=== PATIENT | male | born 1990 | race Caucasian/White ===

== ENCOUNTER 2017-01-29 14:17 | Inpatient (IN) | payer BC, OTHER ==
[~2017-01-29] VITALS: Ht 167.6 cm; Wt 68.0 kg
[2017-01-29 20:16] LABS: *AMPHETAMINE, URINE NEGATIVE (NEGATIVE); *BARBITURATE, URINE POSITIVE (NEGATIVE); *CANNABINOID, URINE POSITIVE (NEGATIVE); *COCCAINE, URINE NEGATIVE (NEGATIVE); *OPIATE, URINE NEGATIVE (NEGATIVE); *PHENCYCLIDINE SCREEN,URINE NEGATIVE (NEGATIVE)
--- NOTE | 2017-01-29 20:30 | NUR ---
ADMISSION NOTE---- Admitting 26 y/o male to [facility], [place], [facility] for ALCOHOL/BENZO/CRYSTAL METH AND MARIJUANA Dependency. HT - 5 FEET,6 INCHES. WT - 150 POUNDS. Pt is A/O X 4.PT denies any allergies to food or medications.Pt has a PMH of Anxiety,Depression,Bipolar disorder,PTSD,Insomnia,Hypertension,High Cholesterol,HIV AND SEIZURE X 1 due to withdrawals when he was 20 years old.Skin is intact,warm and dry to touch.Pt has rashes on his upper back due to acne.Breathing is even and non labored,bowel sounds present x 4.Pt stated that he has a BM every other day;last one was day before yesterday.Pt c/o mild nausea,headache,generalized body ache.No c/o vomiting or diarrhea noted.CIWA on admission is 7.Pt does not have a PCP.Pt is homeless. Drug hx as follows:-- ALCOHOL - DRINKS ABOUT A LITRE OF BACCARDI DAILY.DRINKING SINCE AGE OF 18. LAST DRINK WAS 4 DAYS AGO 01-25-17 BENZOS - RX ATIVAN - 2 TO 8 MG PO DAILY.TAKING FOR PAST 2 MONTHS, LAST TAKEN 2 MG ON 01-21-17 CRYSTAL METH - 1 TO 2 GRAMS DAILY.USING SINCE AGE OF 20. LAST USED 2 GRAMS ON 01-25-17 MARIJUANA - 4 GRAMS DAILY.SMOKING SINCE AGE OF 18. LAST USED 2 GRAMS ON 01-28-17. Pt oriented to room and unit;care plan and safety checks initiated.MD notified.Education provided on smoking cessation,Hep C,Fall prevention,seizures and substance use.Pt on full code status and regular diet.Urine obtained and sent to lab. TREATMENT HX FOLLOWS-- 1) [facility] IN [place].DISCHARGED ON 01-26-17 DUE TO INSURANCE PROBLEMS.STAYED THERE FOR 4 DAYS. 2) [facility] IN IN IN YEAR 2014,WHERE HE STAYED FOR 30 DAYS AND WAS SOBER FOR 1 YEAR AFTER THAT. PT STATED THAT [facility] FOR SUICIDAL IDEATIONS/ATTEMPTS SINCE THE AGE OF 16 YEARS.LAST ONE WAS AT [facility] WHERE HE STAYED FOR 10 DAYS.HE HAS HX OF SUICIDE ATTEMPTS BY CUTTING HIS WRISTS AND OVERDOSING ON MEDICATIONS IN THE PAST.HE IS PRESENTLY VERY DEPRESSED BUT DENIES ANY SI/HI/AH/VH AT THIS TIME.WILL CONTINUE TO MONITOR FOR SAFETY AND FOLLOW CARE PLAN. Addendum: 01/30/17 at 0236 by CARMEN MARQUEZ RN ALL SAFETY MEASURES IN PLACE.BED IS LOCKED AND IN LOWEST POSITION.SIDE RAILS UP X 2,CALL LIGHT WITHIN REACH.
[2017-01-29 20:35] VITALS: BP 147/99
[2017-01-29] MEDS ORDERED: ONDANSETRON 4 MG/2 ML VIAL IM PRN (22:15)
[2017-01-29] MEDS ORDERED: LOPERAMIDE HCL 2 MG CAPSULE PO PRN ×2 (22:15)
[2017-01-29] MEDS ORDERED: MAG HYDROX/AL HYDROX/SIMETH 30 ML LIQUID UDC PO PRN (22:15)
[2017-01-29] MEDS ORDERED: diphenhydrAMINE 50 MG CAPSULE PO PRN (22:15)
[2017-01-29] MEDS ORDERED: MAGNESIUM HYDROXIDE 30 ML LIQUID UDC PO PRN (22:15)
[2017-01-29] MEDS ORDERED: DICYCLOMINE HCL 20 MG TABLET PO PRN (22:15)
[2017-01-29] MEDS ORDERED: ACETAMINOPHEN 325 MG TABLET PO PRN (22:15)
[2017-01-29] MEDS ORDERED: LORAZEPAM 2 MG/1 ML VIAL IM PRN (22:15)
[2017-01-29] MEDS ORDERED: THIAMINE HCL 200 MG/2 ML VIAL IM ONE (22:15)
[2017-01-29] MEDS ORDERED: MIRALAX 17 GM POWD.PACK PO PRN (22:15)
[2017-01-29] MEDS ORDERED: LORAZEPAM 1 MG TABLET PO PRN ×2 (22:15)
[2017-01-29] MEDS ORDERED: LORAZEPAM 1 MG TABLET PO ONE (22:15)
[2017-01-29] MEDS: IBUPROFEN 400 MG TABLET PO PRN (22:25)
[2017-01-29] MEDS: ONDANSETRON ODT 4 MG TAB.RAPDIS SL PRN (22:26)
[2017-01-29] MEDS ORDERED: THIAMINE HCL 200 MG/2 ML VIAL ONE (22:28)
[2017-01-29] MEDS ORDERED: IBUPROFEN 400 MG TABLET ONE (22:30)
[2017-01-29] MEDS ORDERED: ONDANSETRON ODT 4 MG TAB.RAPDIS ONE (22:30)
--- NOTE | 2017-01-29 22:30 | NUR ---
PRN MOTRIN AND ZOFRAN GIVEN ORDERED FOR C/O HEADACHE AND NAUSEA.NO C/O VOMITING NOTED.WILL MONITOR.
[2017-01-29 22:59] LABS: ETHANOL < 3 MG/DL (0-0)
[2017-01-29 23:03] LABS: BASOPHILS % (AUTO) 0.3 % (0.0-2.0); EOSINOPHILS % (AUTO) 0.4 % (0.0-7.0); HEMATOCRIT 40.7 % (36.7-47.1); HEMOGLOBIN 13.9 g/dL (12.5-16.3); MEAN CORPUSCULAR HEMOGLOBIN 31.6 uug (23.8-33.4); MEAN CORPUSCULAR HGB CONC 34 g/dL (32.5-36.3); MEAN CORPUSCULAR VOLUME 92.9 fL (73.0-96.2); MONOCYTES # (AUTO) 0.3 K/uL (2.0-10.0); MONOCYTES % (AUTO) 5.3 % (0.0-11.0); PLATELET COUNT (AUTO) 192 K/uL (152-348); RED BLOOD CELL COUNT(AUTO) 4.39 MIL/uL (4.06-5.63); RED CELL DISTRIBUTION WIDTH 14.2 % (12.1-16.2); WHITE BLOOD COUNT (AUTO) 6.3 K/uL (3.6-10.2)
[2017-01-29 23:04] LABS: ALANINE AMINOTRANSFERASE 35 U/L (16-63); ALBUMIN 4.7 g/dL (3.4-5.0); ALKALINE PHOSPHATASE 140 U/L (50-136); AMYLASE 56 U/L (25-115); ASPARTATE AMINOTRANSFERASE 21 U/L (15-37); BILIRUBIN,TOTAL 0.6 mg/dL (0.2-1.0); CALCIUM 9.2 mg/dL (8.5-10.1); CARBON DIOXIDE 25 mmol/L (21-32); CHLORIDE 103 mmol/L (98-107); GFR 92 mL/min (>60); GLUCOSE 95 mg/dL (74-106); LIPASE 168 U/L (73-393); SODIUM SERUM 139 mmol/L (136-145); TOTAL PROTEIN, SERUM 8.2 g/dL (6.4-8.2); UREA NITROGEN, BLOOD 5 mg/dL (7-18)
[2017-01-29 23:14] LABS: THYROID STIMULATING HORMONE 1.793 mIU/mL (0.358-3.740)
--- NOTE | 2017-01-29 23:30 | NUR ---
PRN F/U--- HEADACHE AND NAUSEA RELIEVED.
[2017-01-29 23:33] LABS: HIV-1 p24 ANTIGEN NON REACTIVE (NONREACTIVE); HIV-1/2 ANTIBODY REACTIVE (NONREACTIVE)
[2017-01-29] MEDS ORDERED: POTASSIUM CHLORIDE 20 MEQ TAB.PRT.SR PO ONE (23:45)
[2017-01-30 00:15] VITALS: BP 153/100
[2017-01-30] MEDS ORDERED: POTASSIUM CHLORIDE 20 MEQ TAB.PRT.SR ONE (00:26)
[2017-01-30] MEDS: CLONIDINE HCL 0.1 MG TABLET PO PRN ×3 (00:26→15:05)
[2017-01-30] MEDS ORDERED: diphenhydrAMINE 50 MG CAPSULE ONE (00:27)
[2017-01-30] MEDS ORDERED: CLONIDINE HCL 0.1 MG TABLET ONE (00:28)
--- NOTE | 2017-01-30 00:29 | NUR ---
PRN BENADRYL AND CLONIDINE GIVEN ORDERED FOR C/O INSOMNIA,ANXIETY AND CHILLS.B/P=147/100.WILL MONITOR.
[2017-01-30] MEDS ORDERED: ACET-73 PO (01:19)
--- NOTE | 2017-01-30 01:30 | NUR ---
PRN F/U-- PT SEEN RESTING IN BED WITH EYES CLOSED.NO S/S OF DISTRESS NOTED.
[2017-01-30] MEDS ORDERED: LAMO25TA PO (01:36)
[2017-01-30] MEDS ORDERED: NICO1PAT10 TP (01:36)
[2017-01-30] MEDS ORDERED: ONDA4TAB5 PO (01:36)
[2017-01-30] MEDS ORDERED: LORA10CA PO (01:36)
[2017-01-30] MEDS ORDERED: LAMO100T PO (01:36)
[2017-01-30] MEDS ORDERED: LOPE2CAP40 PO (01:36)
[2017-01-30] MEDS ORDERED: MAGN400T30 PO (01:36)
[2017-01-30] MEDS ORDERED: POLY17PO3 PO (01:36)
[2017-01-30] MEDS ORDERED: OLAN5TAB3 PO (01:36)
[2017-01-30] MEDS ORDERED: MULT-1185 PO (01:36)
[2017-01-30] MEDS ORDERED: THIA100T13 PO (01:36)
[2017-01-30] MEDS ORDERED: CALC-469 PO (01:36)
[2017-01-30] MEDS ORDERED: DOCU-25 PO (01:36)
[2017-01-30] MEDS ORDERED: PRAZ1CAP5 PO (01:36)
[2017-01-30] MEDS ORDERED: SIME80TA60 PO (01:36)
[2017-01-30] MEDS ORDERED: CYAN10009 PO (01:36)
[2017-01-30] MEDS ORDERED: ROSU10TA PO (01:36)
[2017-01-30] MEDS ORDERED: PHEN32.43 PO (01:36)
[2017-01-30] MEDS ORDERED: GABA-534 PO (01:36)
[2017-01-30] MEDS ORDERED: FOLI1TAB16 PO (01:36)
[2017-01-30] MEDS ORDERED: CLON0.1T PO (01:36)
[2017-01-30] MEDS ORDERED: FLUT16SP BNOSTRILS (01:36)
[2017-01-30 04:00] VITALS: BP 127/82
--- NOTE | 2017-01-30 06:47 | NUR ---
END OF SHIFT--- 26 y/o male admitted to [facility] for ALCOHOL/BENZO/CRYSTAL METH AND MARIJUANA Dependency.Pt is A/O X 4.PT denies any allergies to food or medications.Pt has a PMH of Anxiety,Depression,Bipolar disorder,PTSD,Insomnia,Hypertension,High Cholesterol,HIV AND SEIZURE X 1 due to withdrawals when he was 20 years old.Pt has history of suicide attempts in the past;denies any SI at this time.Skin is intact,warm and dry to touch.Pt has rashes on his upper back due to acne.Breathing is even and non labored,bowel sounds present x 4. Last CIWA = 2.PRN Clonidine, Zofran, Motrin and Benadryl were given last night.Pt slept 5 hrs;fluid intake was 500 mls,voided x 2 . Safety precautions in place. Will continue to monitor
[2017-01-30 08:00] VITALS: BP 115/71
--- NOTE | 2017-01-30 08:15 | NUR ---
START OF SHIFT: RECEIVED PT A/O X 4. HE PRESENTS WITH BLUNTED AFFECT AND DEPRESSED MOOD. HE DENIES S/I AND H/I. HE REPORTS NAUSEA ,HEARTBURN AND ANXIETY. CIWA 7.PRN MYLANTA,VISTARIL,CLONIDINE ,ZOFRAN AND CLONIDINE GIVEN. WILL MONITOR EFFECTIVENESS OF PRN MEDS. PSYCH MD TO ASSESS PT TODAY. PPD PLANTED TO [facility]. ENCOURAGED INCREASED FLUIDS AND REST. WILL CONTINUE TO MONITOR AND OFFER SUPPORT.
[2017-01-30] MEDS: THIAMINE HCL 100 MG TABLET PO SCH (08:23)
[2017-01-30] MEDS: ONDANSETRON ODT 4 MG TAB.RAPDIS SL PRN ×2 (08:23→22:02)
[2017-01-30] MEDS: GABAPENTIN 300 MG CAPSULE PO SCH ×3 (08:24→17:30)
[2017-01-30] MEDS: HYDROXYZINE PAMOATE 25 MG CAPSULE PO PRN (08:24)
[2017-01-30] MEDS: FOLIC ACID 1 MG TABLET PO SCH (08:24)
[2017-01-30] MEDS: MULTIVITAMINS,THERAPEUTIC TABLET PO SCH (08:26)
[2017-01-30] MEDS ORDERED: PATIENT MAY USE OWN MED- MD OK PO SCH (09:00)
[2017-01-30] MEDS ORDERED: PROPRANOLOL LA 80 MG CAP.SA.24H PO SCH (09:00)
[2017-01-30] MEDS ORDERED: TUBERCULIN,PURIF.PROT.DERIV. 5 TU/0.1 ML TEST ID ONE (09:00)
--- NOTE | 2017-01-30 09:00 | NUR ---
PRN MEDS WERE EFFECTIVE. PT STATES HE FEELS BETTER.
[2017-01-30] MEDS ORDERED: LAMOTRIGINE 25 MG TABLET PO SCH (11:45)
[2017-01-30] MEDS ORDERED: LAMOTRIGINE 100 MG TABLET PO SCH (11:45)
[2017-01-30 12:00] VITALS: BP 140/88
[2017-01-30] MEDS: LAMOTRIGINE 100 MG TABLET PO SCH (12:54)
--- NOTE | 2017-01-30 15:05 | NUR ---
PRN CLONIDINE GIVEN FOR REPORTED CHILLS AND ANXIETY. WILL MONITOR EFFECTIVENESS OF PRN.
--- NOTE | 2017-01-30 15:40 | NUR ---
PRN CLONIDINE EFFECTIVE. PT STATES HE FEELS BETTER.
[2017-01-30 16:00] VITALS: BP 115/71
[2017-01-30] MEDS ORDERED: GABAPENTIN 300 MG CAPSULE PO SCH (17:00)
--- NOTE | 2017-01-30 19:13 | NUR ---
END OF SHIFT: PT CONTINUES ON OBSERVATION. PSYCH MD ASSESSED PT AND RECONCILED MEDS. HE C/O CHILLS ,NAUSEA AND HEARTBURN THIS AM. MYLANTA ,ZOFRAN,VISTARIL AND CLONIDINE GIVEN PRN AND EFFECTIVE. HE REPORTED SOME ANXIETY AND CHILLS THIS AFTERNOON AND CLONIDINE PRN GIVEN AND EFFECTIVE.PPD PLANTED TO [facility]. WILL PASS SHIFT REPORT TO ONCOMING NIGHT NURSE.
--- NOTE | 2017-01-30 19:15 | NUR ---
START OF SHIFT NOTE: Patient is a 26 y/o male admitted on 01/29/17 for ETOH & Benzo dependence. Patient reported also using Meth & Marijuana. Patient has medical history of Depression, Anxiety, Bipolar disorder, Seizure history d/t withdrawal, PTSD, HTN, High cholesterol, HIV & Insomnia. Patient is on a a regular diet with no known food and drug allergies. Full Code status. Seizure and Fall precaution. Patient is on PRN medications available for symptoms of withdrawals. Last CIWA is 1. Pt was given PRN Clonidine x2 during day shift. Patient is alert & oriented x4. No shortness of breath noted. Respiration even & unlabored. Abdomen soft & non-distended. Bowel sounds active in all four quadrants. No nausea/vomiting noted. Patient noted with 8/10 body aches & anxiety. Bilateral hand tremors noted. No hallucinations. Patient denies SI/HI. Safety precautions are in place. Bed locked in lowest position. Both side rails up. Call light within pts reach. Will continue to monitor patient.
[2017-01-30 20:00] VITALS: BP 132/88
[2017-01-30] MEDS: IBUPROFEN 400 MG TABLET PO PRN (20:00)
--- NOTE | 2017-01-30 20:00 | NUR ---
PRN Motrin Patient complains of 8/10 body aches. PRN Motrin given as ordered. Will reassess in 1 hour for effectiveness of medication. Will continue to monitor.
[2017-01-30 20:53] LABS: *BILIRUBIN,URIN NEGATIVE (NEGATIVE); *BLOOD, URINE NEGATIVE (NEGATIVE); *CLARITY,URINE SLIGHTLY CLOUDY (CLEAR); *COLOR,URINE YELLOW (YELLOW); *KETONES,URINE NEGATIVE (NEGATIVE); *PROTEIN,URINE NEGATIVE (NEGATIVE); LEUKOCYTE ESTERASE ,URINE NEGATIVE (NEGATIVE); NITRITE, URINE NEGATIVE (NEGATIVE); PH,URINE 6.5 (5.0-8.0); UGLUCOSE NEGATIVE (NEGATIVE)
--- NOTE | 2017-01-30 21:00 | NUR ---
PRN Reassessment Patient verbalized slight relief from body aches. Patient noted with 3/10 body aches at this time. Per pt, pain is tolerable. Will continue to monitor patient.
[2017-01-30 21:35] LABS: BACTERIA,URINE NONE SEEN /HPF (NONE SEEN); MUCUS,URINE MODERATE /LPF (0-FEW); RBC,URINE NONE SEEN /HPF (0-3); SQUAMOUS EPITHELIAL CELL,UR MODERATE /HPF (NONE SEEN)
[2017-01-30] MEDS: TRAZODONE 100 MG TABLET PO SCH (21:50)
[2017-01-30] MEDS: OLANZAPINE 5 MG TABLET PO SCH (21:50)
[2017-01-30] MEDS: PROPRANOLOL HCL 40 MG TABLET PO SCH (21:50)
[2017-01-30] MEDS: PRAZOSIN HCL 1 MG CAPSULE PO SCH (21:50)
[2017-01-30] MEDS: PATIENT MAY USE OWN MED- MD OK PO SCH (21:51)
--- NOTE | 2017-01-30 22:02 | NUR ---
PRN Ativan & Zofran Patient complains of nausea and noted with anxiety, agitation & mild headache. Slight bilateral hand tremors noted. CIWA of 7 noted. PRN Ativan given as ordered. Will reassess in 1 hour for effectiveness of medication. Will continue to monitor.
--- NOTE | 2017-01-30 23:02 | NUR ---
PRN Reassessment Patient verbalized effectiveness of medication. Improved nausea and decreased in anxiety noted. Pt lying in bed and appears comfortable. Vitals WNL. CIWA 2 noted at this time. Will continue to monitor.
[2017-01-31] VITALS (7 sets, daily range): BP systolic 111–145; BP diastolic 61–99
[2017-01-31] MEDS: IBUPROFEN 400 MG TABLET PO PRN (02:15)
[2017-01-31] MEDS: CLONIDINE HCL 0.1 MG TABLET PO PRN ×3 (02:15→18:56)
--- NOTE | 2017-01-31 02:15 | NUR ---
PRN Clonidine & Motrin Patient complains of anxiety, sweating, chills and mild headache. Vitals WNL. PRN Clonidine & Motrin given as ordered. Will continue to monitor patient.
--- NOTE | 2017-01-31 03:15 | NUR ---
PRN Reassessment Patient asleep in bed at this time and appears comfortable. No shortness of breath noted. Respiration even & unlabored. Safety precautions are in place. Will continue to monitor patient.
[2017-01-31 04:06] LABS: *BASOS 0 % (.); *EOS 0 % (.); *HCT 41.9 % (37.5-51.0); *HGB 13.6 g/dL (12.6-17.7); *IMMATURE GRANULOCYTES 0 % (.); *LYMPHOCYTES 35 % (.); *LYMPHOCYTES ABSOLUTE 2.3 x10E3/uL (0.7-3.1); *MCHC 32.5 g/dL (31.5-35.7); *MCV 95 fL (79-97); *MONOCYTES 5 % (.); *MONOCYTES ABSOLUTE 0.3 x10E3/uL (0.1-0.9); *NEUTROPHILS 60 % (.); *PLT 211 x10E3/uL (150-379); *RBC 4.39 x10E6/uL (4.14-5.80); *RDW 14.7 % (12.3-15.4); *WBC 6.6 x10E3/uL (3.4-10.8)
[2017-01-31 05:06] LABS: HCV AB <0.1 s/co ratio (0.0-0.9); HEPATITIS B CORE AB, IgM Negative (Negative); HEPATITIS B SURFACE AG Negative (Negative)
--- NOTE | 2017-01-31 07:05 | NUR ---
END OF SHIFT NOTE: Pt had and uneventful night. Pt remained stable and vitals remains WNL. Pt was given PRN Motrin x2, Clonidine, Ativan & Zofran were given and were effective. Pt reported that medication is effective in controlling withdrawal symptoms. Last CIWA 2 noted. Urine collected as ordered. Pt slept for a total of 6 hours. Pt still asleep at this time. No s/s of distress noted. No shortness of breath noted. Respiration even & unlabored. Pt consumed 796ml of fluids. Voided 1x with no bowel movement. All needs attended & met. Safety precautions are in place. Bed locked in lowest position. Both side rails up. Call light within pts reach. Will endorse pt to day shift nurse.
--- NOTE | 2017-01-31 07:38 | NUR ---
START OF SHIFT NOTE: Received report from warehouse supervisor 3rd shift nurse. Patient is a 26 y/o male admitted on 01/29/17 for ETOH & Benzo dependence. Pt is currently on prn medication only. Pt is alert and oriented X4, Color good, skin warm and dry. Respirations even and unlabored. Pt resting in room at this time. Safety precautions observed. Call light within reach. Will continue to monitor.
[2017-01-31] MEDS: GABAPENTIN 300 MG CAPSULE PO SCH ×3 (08:32→16:54)
[2017-01-31] MEDS: MULTIVITAMINS,THERAPEUTIC TABLET PO SCH (08:32)
[2017-01-31] MEDS: PROPRANOLOL HCL 40 MG TABLET PO SCH ×2 (08:32→20:13)
[2017-01-31] MEDS: ESCITALOPRAM OXALATE 10 MG TABLET PO SCH (08:33)
[2017-01-31] MEDS: FOLIC ACID 1 MG TABLET PO SCH (08:33)
[2017-01-31] MEDS: FLUTICASONE PROP NASAL SPRAY 16 GM BOTTLE NS SCH (08:33)
[2017-01-31] MEDS: LAMOTRIGINE 100 MG TABLET PO SCH (08:33)
[2017-01-31] MEDS: THIAMINE HCL 100 MG TABLET PO SCH (08:33)
[2017-01-31] MEDS ORDERED: NICOTINE 14 MG/24HR PATCH TD SCH (09:00)
[2017-01-31 09:06] LABS: ALBUMIN 4.8 g/dL (3.4-5.0); BILIRUBIN,DIRECT 0.1 mg/dL (0.0-0.2); BILIRUBIN,TOTAL 0.6 mg/dL (0.2-1.0); CALCIUM 9.1 mg/dL (8.5-10.1); CREATININE 1.1 mg/dL (0.6-1.3); MAGNESIUM 2.2 mg/dL (1.8-2.4); POTASSIUM 4.3 mmol/L (3.5-5.1); TOTAL PROTEIN, SERUM 8.3 g/dL (6.4-8.2)
--- NOTE | 2017-01-31 09:56 | NUR ---
VSS CIWA 9 Pt c/o tremors, sweating and anxiety.
--- NOTE | 2017-01-31 11:37 | NUR ---
Pt c/o anxiety Clonidine 0.1mg po prn given.
--- NOTE | 2017-01-31 12:45 | NUR ---
VSS Pt states anxiety has lessened after Clonidine prn
[2017-01-31] MEDS ORDERED: PANTOPRAZOLE SODIUM 40 MG TABLET.DR PO ONE (14:00)
[2017-01-31 14:10] LABS: *HELPER T-LYMPH MARKR(CD4)ABSO 849 /uL (359-1519); *HELPER T-LYNPH MARKER CD4)% 36.9 % (30.8-58.5)
[2017-01-31] MEDS: ONDANSETRON ODT 4 MG TAB.RAPDIS SL PRN (16:54)
--- NOTE | 2017-01-31 16:56 | NUR ---
Pt c/o nausea. Zofran 4mg SL prn given
[2017-01-31 17:25] LABS: *AMPHETAMINE, URINE NEGATIVE (NEGATIVE); *BARBITURATE, URINE POSITIVE (NEGATIVE); *CANNABINOID, URINE POSITIVE (NEGATIVE); *COCCAINE, URINE NEGATIVE (NEGATIVE); *OPIATE, URINE NEGATIVE (NEGATIVE); *PHENCYCLIDINE SCREEN,URINE NEGATIVE (NEGATIVE)
--- NOTE | 2017-01-31 18:09 | NUR ---
Pt states he feels improved after Zofran prn
--- NOTE | 2017-01-31 18:43 | NUR ---
END OF SHIFT NOTE: Report given to surveying crew rodman nurse . Patient is a 26 y/o male admitted on 01/29/17 for ETOH & Benzo dependence. Pt is currently on prn medication only. To be discharged in AM. Pt is HIV +. Pt is alert and oriented X4, Color good, skin warm and dry. Respirations even and unlabored. Vital signs have remained stable throughout shift. Last CIWA 9 @ 1500. Pt received Clonidine 0.1mg po prn @ 1130 for anxiety and Zofran 4mg sl prn @ 1700. Safety precautions observed. Call light within reach
--- NOTE | 2017-01-31 19:00 | NUR ---
Clonidine 0.1 mg po prn given for anxiety
[2017-01-31] MEDS ORDERED: Trazodone Hcl PO (19:24)
[2017-01-31] MEDS ORDERED: HYDR-3895 PO (19:24)
[2017-01-31] MEDS ORDERED: ESCI10TA PO (19:24)
[2017-01-31] MEDS ORDERED: Nicotine TD (19:24)
[2017-01-31] MEDS ORDERED: LAMO100T2 PO (19:24)
[2017-01-31] MEDS ORDERED: Gabapentin PO (19:24)
--- NOTE | 2017-01-31 19:30 | NUR ---
START OF SHIFT NOTE: Patient is a 26 y/o male admitted on 01/29/17 for ETOH & Benzo dependence. Patient reported also using Meth & Marijuana. Patient has medical history of Depression, Anxiety, Bipolar disorder, Seizure history d/t withdrawal, PTSD, HTN, High cholesterol, HIV & Insomnia. Patient is on a a regular diet with no known food and drug allergies. Full Code status. Seizure and Fall precaution. Patient has PRN medications available for symptoms of withdrawals. Pt is scheduled to be discharge tomorrow. Urine drug screen collected and resulted Last CIWA is 9. Pt was given PRN Clonidine x2 and Zofran during day shift. Patient is alert & oriented x4. No shortness of breath noted. Respiration even & unlabored. Abdomen soft & non-distended. Bowel sounds active in all four quadrants. Slight nausea noted with no episode of vomiting. No complaints of pain/discomfort. Patient noted to be very anxious and restless. Bilateral hand tremors noted. No hallucinations. Patient denies SI/HI. Safety precautions are in place. Bed locked in lowest position. Both side rails up. Call light within pts reach.
--- NOTE | 2017-01-31 20:00 | NUR ---
PRN Reassessment Pt still noted with anxiety. PRN Clonidine not effective. Will continue to monitor
[2017-01-31] MEDS: PRAZOSIN HCL 1 MG CAPSULE PO SCH (20:13)
[2017-01-31] MEDS: OLANZAPINE 5 MG TABLET PO SCH (20:13)
[2017-01-31] MEDS: HYDROXYZINE PAMOATE 25 MG CAPSULE PO PRN (20:13)
--- NOTE | 2017-01-31 20:15 | NUR ---
PRN Vistaril Patient is very anxious and restless. Pt is in his room and crying. PRN Vistaril PO administered as ordered. Will continue to monitor patient.
[2017-01-31] MEDS ORDERED: PATIENT MAY USE OWN MED- MD OK PO SCH (21:00)
[2017-01-31] MEDS ORDERED: QUETIAPINE FUMARATE 25 MG TABLET PO SCH (22:00)
[2017-01-31] MEDS: PATIENT MAY USE OWN MED- MD OK PO SCH (22:09)
--- NOTE | 2017-01-31 22:09 | NUR ---
SEROQUEL 50MG X1 Patient still very anxious and emotional. Dr. Eddy notified of pt's situation and ordered a one time dose of Seroquel 50mg PO. Seroquel 50mg PO administered as ordered. Will continue to monitor patient.
[2017-01-31] MEDS: TRAZODONE 100 MG TABLET PO SCH (22:24)
--- NOTE | 2017-01-31 23:00 | NUR ---
MD COMMUNICATION Patient verbalized suicidal ideation with no active suicidal plan of killing himself at the moment. Patient is very anxious and emotional. Called Dr. Eddy and relayed to him about situation with orders to place pt on 1:1 observation for close monitoring until he sees him in the morning. Placed pt on 1:1 oberservation as ordered. Will continue to monitor patient.
--- NOTE | 2017-02-01 | NUR ---
Pt asleep at this time. No shortness of breath noted. Respiration even & unlabored. On continuous 1:1 observation for close monitoring. Safety precautions are in place.
[2017-02-01 04:00] VITALS: BP 146/96
[2017-02-01] MEDS: CLONIDINE HCL 0.1 MG TABLET PO PRN ×2 (04:32→08:42)
--- NOTE | 2017-02-01 04:32 | NUR ---
PRN Clonidine Patient complains of anxiety. Patient lying in bed with no s/s of distress noted. PRN Clonidine administered as ordered. Vitals WNL. Will reassess pt in 1 hour for effectiveness of medication.
[2017-02-01] MEDS: IBUPROFEN 400 MG TABLET PO PRN (04:43)
--- NOTE | 2017-02-01 04:43 | NUR ---
PRN Motrin Patient complains of 6/10 body aches and mild headache. PRN Motrin given as ordered. Will continue to monitor patient.
--- NOTE | 2017-02-01 04:45 | NUR ---
PRN Reassessment Patient asleep in bed at this time and appears comfortable with no facial grimacing noted. On continuous 1:1 observation. No s/s of distress noted. Safety precautions are in place. Will continue to monitor patient.
[2017-02-01] MEDS ORDERED: PANTOPRAZOLE SODIUM 40 MG TABLET.DR PO SCH (07:00)
--- NOTE | 2017-02-01 07:14 | NUR ---
END OF SHIFT NOTE: Patient is a 26 y/o male admitted on 01/29/17 for ETOH & Benzo dependence. Patient reported also using Meth & Marijuana. Patient has medical history of Depression, Anxiety, Bipolar disorder, Seizure history d/t withdrawal, PTSD, HTN, High cholesterol, HIV & Insomnia. Patient is on a a regular diet with no known food and drug allergies. Full Code status. Seizure and Fall precaution. Patient has PRN medications available for symptoms of withdrawals. Pt is scheduled to be discharge today. Urine drug screen collected and resulted. Pt was very anxious and emotional last night and Vistaril and Seroquel given was not effective. Pt was verbalizing suicidal ideation but with no active suicidal plan noted. Pt was placed on a 1:1 observation to closely monitor patient per Dr. Nash order. At 0432, PRN Motrin for body aches and Clonidine for anxiety was given and was effective. Pt was able to sleep after medication administration. Pt slept for a total of 6 hours. Pt consumed 996ml of fluids. Voided 1x with no bowel movement. All needs attended & met. Safety precautions are in place. Bed locked in lowest position. Both side rails up. Call light within pts reach. Will endorse pt to day shift nurse.
--- NOTE | 2017-02-01 07:30 | NUR ---
MD COMMUNICATION Dr. Eddy called with instructions, if pt denies SI , he can discharge today, noted and carried out.
--- NOTE | 2017-02-01 07:30 | NUR ---
START OF SHIFT Pt 26 y/o male admitted for etoh/ benzo dependence. Pt received in room with eyes closed resting, but easily arousable to name, with sitter 1:1 to monitor for safety. Pt alert and oriented to name, place, and time. Perrla. Skin warm and dry to touch. Respirations even and unlabored. Pt noted with smile during conversation. It was reported that pt slept for 6 hours last night. Bed on lowest position with side rails x2 up for safety. Call light within reach.
[2017-02-01 08:00] VITALS: BP 121/83
[2017-02-01] MEDS: FLUTICASONE PROP NASAL SPRAY 16 GM BOTTLE NS SCH (08:40)
[2017-02-01] MEDS: PROPRANOLOL HCL 40 MG TABLET PO SCH (08:40)
[2017-02-01] MEDS: HYDROXYZINE PAMOATE 25 MG CAPSULE PO PRN (08:41)
[2017-02-01] MEDS: ESCITALOPRAM OXALATE 10 MG TABLET PO SCH (08:41)
[2017-02-01] MEDS: LAMOTRIGINE 100 MG TABLET PO SCH (08:41)
--- NOTE | 2017-02-01 08:41 | NUR ---
PRN Pt stated he feels anxious and restless. Vistaril po prn per MD order given and tolerated well.
[2017-02-01 08:42] VITALS: BP 121/73
[2017-02-01] MEDS: GABAPENTIN 300 MG CAPSULE PO SCH (08:42)
[2017-02-01] MEDS: THIAMINE HCL 100 MG TABLET PO SCH (08:42)
[2017-02-01] MEDS: FOLIC ACID 1 MG TABLET PO SCH (08:42)
[2017-02-01] MEDS: MULTIVITAMINS,THERAPEUTIC TABLET PO SCH (08:42)
--- NOTE | 2017-02-01 08:42 | NUR ---
PRN Pt still states feels anxious and restless. Catapres po prn per MD order given and tolerated well.
[2017-02-01] MEDS ORDERED: PATIENT MAY USE OWN MED- MD OK PO SCH (09:00)
[2017-02-01] MEDS ORDERED: NICOTINE 14 MG/24HR PATCH TD SCH (09:00)
[2017-02-01] MEDS: ONDANSETRON ODT 4 MG TAB.RAPDIS SL PRN (09:04)
--- NOTE | 2017-02-01 09:41 | NUR ---
MITCHN ANTONIA Pt observed in room packing and smiling.
--- NOTE | 2017-02-01 09:42 | NUR ---
MITCHN ANTONIA Pt observed in room packing and smiling.
--- NOTE | 2017-02-01 09:56 | NUR ---
DISCHARGE Pt discharged to [facility] via private transport " [facility]'s roll". Pt admitted for etoh/ benzo dependence. Pt alert and oriented to name, place, and time. Respirations even and unlabored. Skin warm and dry to touch. Pt denies any complaints of pain/ discomfort. Pt stated ," I'm ready to be discharged". Pt also noted smiling during conversation. All home medications, belongings, prescriptions, and discharge documents packed in pt bag. VS wnl. No distress noted.
[2017-02-02 05:16] LABS: *BASOS 0 % (.); *EOS 0 % (.); *HCT 41.5 % (37.5-51.0); *HGB 14.5 g/dL (12.6-17.7); *IMMATURE GRANULOCYTES 0 % (.); *LYMPHOCYTES 26 % (.); *LYMPHOCYTES ABSOLUTE 2.4 x10E3/uL (0.7-3.1); *MCHC 34.9 g/dL (31.5-35.7); *MCV 92 fL (79-97); *MONOCYTES 4 % (.); *MONOCYTES ABSOLUTE 0.4 x10E3/uL (0.1-0.9); *NEUTROPHILS 70 % (.); *NEUTROPHILS ABSOLUTE 6.2 x10E3/uL (1.4-7.0); *PLT 253 x10E3/uL (150-379); *RBC 4.53 x10E6/uL (4.14-5.80); *RDW 15.1 % (12.3-15.4)
[2017-02-02 07:06] LABS: *CHLAMYDIA NAA Negative (Negative); *GC NAA Negative (Negative); *TRIC.VAG. NAA Negative (Negative)
[2017-02-02 13:06] LABS: *HELPER T-LYMPH MARKR(CD4)ABSO 763 /uL (359-1519); *HELPER T-LYNPH MARKER CD4)% 31.8 % (30.8-58.5)
[2017-02-07 05:56] LABS: *AMOBARBITAL Negative (Cutoff=200); *BENZODIAZEPINES Positive (.); *BUTALBITAL Negative (Cutoff=200); *CANNABINOID (THC) Positive (.); *NORDIAZEPAM Negative (Cutoff=300); *OXAZEPAM Positive (.); *PENTOBARBITAL Negative (Cutoff=200); *PHENOBARBITAL Positive (.); *SECOBARBITAL Negative (Cutoff=200)
== END 2017-02-01 09:56 | disposition other institution (70) | DRG 895 ==
LOC: SRC 19:15
PROVIDERS: ADMIT Internal Medicine; ATTEND Internal Medicine
PROC: HZ2ZZZZ Detoxification Services for Substance Abuse Treatment (ICD-10-PCS; principal; 2017-01-29)
PROC: HZ41ZZZ Group Counseling for Substance Abuse Treatment, Behavioral (ICD-10-PCS; 2017-01-30)
PROC: HZ31ZZZ Individual Counseling for Substance Abuse Treatment, Behavioral (ICD-10-PCS; 2017-01-31)
DX: F10.20 Alcohol dependence, uncomplicated (principal); F13.20 Sedative, hypnotic or anxiolytic dependence, uncomplicated; F15.20 Other stimulant dependence, uncomplicated; Y90.9 Presence of alcohol in blood, level not specified; F31.9 Bipolar disorder, unspecified; Z59.0 Homelessness; Z83.3 Family history of diabetes mellitus; Z82.49 Family history of ischemic heart disease and other diseases of the circulatory system; Z81.1 Family history of alcohol abuse and dependence; Z81.4 Family history of other substance abuse and dependence; G47.00 Insomnia, unspecified; I10 Essential (primary) hypertension; F43.10 Post-traumatic stress disorder, unspecified; F12.90 Cannabis use, unspecified, uncomplicated; F17.210 Nicotine dependence, cigarettes, uncomplicated; E87.6 Hypokalemia; T37.5X5A Adverse effect of antiviral drugs, initial encounter; Y92.89 Other specified places as the place of occurrence of the external cause; R74.8 Abnormal levels of other serum enzymes; Z72.51 High risk heterosexual behavior; T76.21XS Adult sexual abuse, suspected, sequela; R76.8 Other specified abnormal immunological findings in serum; Z59.1 Inadequate housing
CPT/HCPCS: 36415; 70030-TC; 80307; 80345; 80346; 80349; 83690; 83735; 84443; 85025; 86361; 86580; 86592; 86705; 86780; 86803; 87340; 87491; 87806; G6040-TC; J3411; J3535; Q0162; Q0163